=== PATIENT | female | born 1985 | race Caucasian/White ===

== ENCOUNTER 2021-09-06 10:28 | Emergency (ER) | payer BC, SELFPAY ==
[2021-09-06 11:16] LABS: #Eosinphils 0.1 thou/uL (0.0-0.7); #Lymphocytes 1.3 thou/uL (1.20-3.40); #Monocytes 0.5 thou/uL (0.11-0.59); #Neutrophils 5.4 thou/uL (1.40-6.50); %Basophils 0.3 % (0.0-1.0); %Eosinophils 1.6 % (0.0-10.0); %Lymphocytes 17.5 % (21.0-51.0); %Monocytes 6.3 % (0.0-10.0); %Neutrophils 74.3 % (42.0-75.0); Hemoglobin 14.6 g/dL (12.0-16.0); Mean Corpuscular HGB CONC 33.8 g/dL (32.0-36.0); Mean Corpuscular Hemoglobin 32.1 pg (27.0-31.0); Mean Platelet Volume 8.2 fL (7.4-10.4); Platelet Count 232 thou/uL (130-400); RBC Distribution Width 11.4 % (11.5-14.5); Red Blood Cell (RBC) Count 4.54 mill/uL (4.20-5.40); White Blood Cell (WBC) Count 7.3 thou/uL (4.8-10.8)
[2021-09-06 11:31] LABS: Bilirubin Negative (Negative); Blood, Urine Large (Negative); Glucose, Urine (Dipstick) Negative (Negative); Ketone, Urine Negative (Negative); Leukocyte Negative (Negative); Nitrite Negative (Negative); Protein, Urine (Dipstick) Negative (Neg-Trace)
[2021-09-06 11:34] LABS: Clarity Clear (Clear); Pregnancy Test - Urine (BHCG) Negative (Negative); Specific Gravity, Urine 1.024 (1.002-1.036)
[2021-09-06 11:35] LABS: Pregu Control Background? CLEAR/WHITE (CLR/WHITE); Pregu Control Bar Appear? YES (CONTROL BAR); Specific Gravity 1.024 (1.002-1.036)
[2021-09-06 11:37] LABS: ALT (SGPT) 39 U/L (8-55); AST (SGOT) 33 U/L (5-34); Albumin 4.4 g/dL (3.5-5.0); Alkaline Phosphatase 52 U/L (40-110); Anion Gap 12 mmol/L (10-20); BUN (Urea Nitrogen) 7 mg/dL (7.0-18.7); Bilirubin, Total 0.4 mg/dL (0.2-1.2); Calc. Creatinine Clearance 0 mL/min (70-130); Calcium 8.8 mg/dL (7.8-10.44); Carbon Dioxide 23 mmol/L (22-29); Chloride 105 mmol/L (98-107); Glucose 118 mg/dL (70-105); Potassium 4.2 mmol/L (3.5-5.1); Protein, Total 7.4 g/dL (6.0-8.3); Sodium 136 mmol/L (136-145)
[2021-09-06 11:39] LABS: Squamous Epithelial 0-3 HPF (0-3); WBC/HPF 0-3 HPF (0-3)
[2021-09-06 11:40] LABS: Bacteria/HPF 1+ HPF (None Seen)
[2021-09-06] MEDS ORDERED: Ketorolac Tromethamine 30 MG/ML VIAL ONE (11:55)
== END 2021-09-06 13:26 | disposition home or self-care (01) ==
LOC: ERS 10:28
DX: R10.30 Lower abdominal pain, unspecified (principal); R11.2 Nausea with vomiting, unspecified; I10 Essential (primary) hypertension; E78.5 Hyperlipidemia, unspecified
CPT/HCPCS: 36415; 76856; 80053; 81003; 81015; 81025; 85025; 93976; 96372; J1885

== ENCOUNTER 2021-09-21 19:41 | Emergency (ER) | payer SELFPAY ==
[2021-09-21] MEDS ORDERED: Acetaminophen 500 MG TAB ONE (22:02)
== END 2021-09-21 22:28 | disposition home or self-care (01) ==
LOC: ERS 19:41
DX: U07.1 COVID-19 (principal); J06.9 Acute upper respiratory infection, unspecified; I10 Essential (primary) hypertension; E78.5 Hyperlipidemia, unspecified
CPT/HCPCS: 87804; 99283; U0003; U0005

== ENCOUNTER 2021-12-13 09:19 | Outpatient (CLI) | payer OTHER ==
[2021-12-13 10:34] LABS: BHCG - Serum Negative (NEGATIVE); Pregs Control Background? CLEAR/WHITE (CLR/WHITE); Pregs Control Bar Appear? YES (CONTROL BAR)
== END 2021-12-13 09:20 | disposition home or self-care (01) ==
LOC: BICRAD 09:19
PROVIDERS: ATTEND Nurse Practitioner Family
DX: Z32.00 Encounter for pregnancy test, result unknown (principal); M54.6 Pain in thoracic spine
CPT/HCPCS: 36415; 74018; 84703